=== PATIENT | male | born 1965 | race Hispanic/Latino ===

== ENCOUNTER → 2021-01-18 | Outpatient (CLI) | payer OTHER | END | disposition home or self-care (01) | LOC: SHCH 15:28 | PROVIDERS: ATTEND Internal Medicine Cardiovascular Disease | DX: I65.1 Occlusion and stenosis of basilar artery (principal) | CPT/HCPCS: 93306; 93356 ==

== ENCOUNTER → 2021-01-22 | Outpatient (CLI) | payer OTHER ==
[~2021-01-22] VITALS: Ht 172.7 cm; Wt 97.5 kg
[2021-01-22] MEDS: REGADENOSON 0.4 MG/5 ML PF SYG IVP SCH (11:05)
== END | disposition home or self-care (01) ==
LOC: SHCH 08:06
PROVIDERS: ATTEND Internal Medicine Cardiovascular Disease
DX: I65.1 Occlusion and stenosis of basilar artery (principal)
CPT/HCPCS: 78452; 93017; 96374; A9500 ×2; J2785